=== PATIENT | female | born 1955 | race Caucasian/White ===

== ENCOUNTER → 2019-04-23 | Outpatient (CLI) | payer OTHER, MEDICARE ==
--- NOTE | 2019-04-23 10:33 | CARD ---
MR#: [id number] Date of Study: 04/23/2019 Ordering Physician: KAREL WAGNER, Referring Physician: KAREL WAGNER, Jazmyn: Zora King APPROVED REPORT EXAM: Two-dimensional and M-mode echocardiogram with Doppler and color Doppler. Other Information Quality : Average INDICATION Elevated Blood Pressure 2D DIMENSIONS RVDd2.8 (2.9-3.5cm)Left Atrium(2D)2.8 (1.6-4.0cm) IVSd0.5 (0.7-1.1cm)Aortic Root(2D)2.4 (2.0-3.7cm) LVDd4.5 (3.9-5.9cm)LVOT Diameter1.8 (1.8-2.4cm) PWd0.6 (0.7-1.1cm)LVDs3.3 (2.5-4.0cm) FS (%) 26.7 %SV48.1 ml LVEF(%)52.4 (>50%) Aortic Valve AoV Peak Nicola.105.6cm/sAoV VTI22.4cm AO Peak GR.4.5mmHgLVOT Peak Nicola.83.4cm/s LVOT VTI 18.22cmAO Mean GR.3mmHg ELMER (VMAX)1.67ib9PQB (VTI)2.13cm2 Mitral Valve MV E Epeukbdk73.6cm/sMV DECEL LPCH880km MV A Jxbskzzc39.2cm/sMV ZTQ52qw E/A Ratio0.6MVA (PHT)2.51cm2 TDI E/Lateral E'6.6E/Medial E'7.0 Pulmonary Valve PV Peak Phngrftj35.9cm/sPV Peak Grad.2mmHg Tricuspid Valve RAP [id number] Pulmonary Vein S1 Mlfyqgfq56.8cm/sD2 Unxfzwrc22.5cm/s PVa [id number] LEFT VENTRICLE The left ventricle is normal size. There is normal left ventricular wall thickness. The left ventricu lar systolic function is normal and the ejection fraction is within normal range with an ejection fra ction of 50 - 55%. There is normal LV segmental wall motion. Transmitral Doppler flow pattern is Grad e I-abnormal relaxation pattern. RIGHT VENTRICLE The right ventricle is normal size. There is normal right ventricular wall thickness. The right ventr icular systolic function is normal. ATRIA The left atrium size is normal. The right atrium size is normal. Prominent [employer] was noted. The interatrial septum is intact with no evidence for an atrial septal defect or patent foramen ovale as noted on 2-D or Doppler imaging. AORTIC VALVE The aortic valve is thickened but opens well. Doppler and Color Flow revealed trace aortic regurgitat ion. There is no significant aortic valvular stenosis. MITRAL VALVE The mitral valve is thickened but opens well. There is no evidence of mitral valve prolapse. There is no mitral valve stenosis. Doppler and Color-flow revealed trace mitral regurgitation. TRICUSPID VALVE The tricuspid valve is normal in structure and function. Doppler and Color Flow revealed trace tricus pid regurgitation. There is no tricuspid valve stenosis. PULMONIC VALVE The pulmonic valve was not well visualized. Doppler and Color Flow revealed no pulmonic valvular regu rgitation. There is no pulmonic valvular stenosis. GREAT VESSELS The aortic root is normal in size. The ascending aorta is normal in size. The IVC is normal in size a nd collapses >50% with inspiration. PERICARDIAL EFFUSION There is no pleural effusion. There is no evidence of significant pericardial effusion. Critical Notification Critical Value: No <Conclusion> The left ventricular systolic function is normal and the ejection fraction is within normal range wit h an ejection fraction of 50 - 55%. There is normal LV segmental wall motion. Signed by : Jin Osullivan, Electronically Approved : 04/23/2019 10:32:52
== END | disposition home or self-care (01) ==
LOC: ECHO 08:30
DX: R03.0 Elevated blood-pressure reading, without diagnosis of hypertension (principal)
CPT/HCPCS: 93306